=== PATIENT | male | born 1950 | race Caucasian/White ===

== ENCOUNTER → 2017-01-01 | Day surgery (SDC) | payer MEDICARE ==
[~2017-01-01] MED LIST: ASPIRIN ENTERI325 M1 PO; ASPIRIN PO; ATARAX PO; ATIVAN PO; BAYER ASPIRIN325 M1 PO; CELEBREX PO; COUMADIN PO; COUMADIN2.5 MG PO; COUMADIN5 MG PO; COUMADIN7.5 MG PO; EPIPEN0.3 MG/0.1 IM; FAMOTIDINE PO; LISINOPRIL PO; LISINOPRIL10 MG PO; LISINOPRIL20 MG PO; MEDROL PO; METHADONE HCL10 MG PO; METHADONE PO; METHADOSE40 M1 PO; NEURONTIN; PAXIL10 MG PO; PERCOCET PO; PREDNISONE PO; PREDNISONE10 MG PO; PRINIVIL20 M1 PO; SOMA PO; SOMA250 MG PO; UNKNOWN BP MED
--- NOTE | ~2017-01-01 | OR ---
Unit #: [id number] #: [id number] Patient: SCOOBY CHAPIN [id number] [address] [id number] O MR#: [id number] NAME: SCOOBY CHAPIN. ROOM: Date of Procedure: 01/01/2017 Admission Date: 01/01/2017 Surgeon: Nav Higginbotham M.D. : 1950 Attending Physician: Nav Higginbotham M.D. Primary Care Physician: Ava Bahena M.D. OPERATIVE REPORT PROCEDURE PERFORMED Colonoscopy with snare polypectomy. INDICATIONS FOR PROCEDURE The patient with personal history of colon cancer, status post left hemicolectomy. MEDICATIONS Monitored anesthesia. POSTOPERATIVE FINDINGS 1. Polyp, 5 mm, cecum, snared and sent for histopathology. 2. Polyps x3, 6 to 8 mm, transverse colon, snared and sent for histopathology. 3. Anastomosis was intact. 4. Prep was very poor despite extensive lavaging. PLAN Given the poor prep and multiple polyps and personal history of colon cancer, recommend repeat colonoscopy in 1 year. DESCRIPTION OF PROCEDURE The patient was explained of the procedure, risks, and benefits along with risks and benefits of anesthesia. He was brought to the endoscopy room. Propofol anesthesia was given. Rectal exam was done, which was normal. Colonoscope was lubricated, passed up the rectum, advanced under direct vision all the way to the cecum. Cecum was identified by ileocecal valve and appendiceal orifice. Polyp seen in cecum was snared and sent for histopathology. Three polyps seen in transverse colon were snared and sent for histopathology. Extensive lavaging was done. I retroflexed in the rectum, small hemorrhoids seen. Scope was gently pulled out. He tolerated it well. Dictated by... Shalini Dominguez/violet TD: 01/01/2017 21:59 JOB #: [id number] Unit #: [id number] #: [id number] Patient: SCOOBY CHAPIN OPERATIVE REPORT X Nav Higginbotham MD PROCEDURE OPERATIVE NOTE
== END | disposition home or self-care (01) ==
LOC: COPS 08:12
DX: Z12.11 Encounter for screening for malignant neoplasm of colon (principal); D12.0 Benign neoplasm of cecum; D12.3 Benign neoplasm of transverse colon; K64.9 Unspecified hemorrhoids; I10 Essential (primary) hypertension; I25.119 Atherosclerotic heart disease of native coronary artery with unspecified angina pectoris; J44.9 Chronic obstructive pulmonary disease, unspecified; Z85.038 Personal history of other malignant neoplasm of large intestine; Z79.82 Long term (current) use of aspirin; Z79.899 Other long term (current) drug therapy; Z90.49 Acquired absence of other specified parts of digestive tract; Z95.5 Presence of coronary angioplasty implant and graft; Z96.643 Presence of artificial hip joint, bilateral; Z98.890 Other specified postprocedural states
CPT/HCPCS: 88305

== ENCOUNTER 2017-07-13 01:58 | Emergency (ER) | payer MEDICARE ==
--- NOTE | ~2017-07-13 | CT16 ---
[facility] A Service of [facility] RADIOLOGY TEXT RESULTS PATIENT: SCOOBY CHAPIN LOCATION: [facility] : 46 UNIT #: [id number] AGE: [address]: Efren Pinzon MD SEX: M ORDER DR: [id number] [facility] [address] [place], [place] [address] [id number] E MR#: [id number] Acc #: [id number] NAME: SCOOBY CHAPIN : 1950 SEX: M STUDY DATE/TIME: 07/13/2017 8:43 UNIT: [facility] ROOM: STUDY DESCRIPTION: CT Angio Chest for PE Attending Physician: Efren Pinzon M.D. Ordering Physician: Efren Pinzon M.D. Primary Care Physician: Ava Bahena M.D. MEDICAL IMAGING REPORT This report is preliminary unless electronic signature is present EXAM CT chest with pulmonary embolus protocol. INDICATIONS Severe left lower leg pain for 4 days, elevated D-dimer. COMPARISON Venous ultrasound 07/13/2017. TECHNIQUE Patient was given 80 mL of Isovue-370, and spiral imaging was performed through the chest. 3D reconstructions of the pulmonary arteries were generated. This CT exam was performed with one or more of the following radiation dose reduction techniques: automatic exposure control, adjustment of mA and/or kV according to patient size, and iterative reconstruction. FINDINGS There is adequate opacification of the pulmonary arteries and there is no CT evidence of pulmonary embolus. Aorta is normal in size and there is no dissection. The visualized thyroid gland is normal. Images through the upper abdomen show splenomegaly with a splenic size of 16.7 cm. Morphologic change in the liver, suggest cirrhosis with a slightly enlarged caudate lobe and left lobe. Bones are unremarkable. The lungs are clear except for minimal right base atelectasis. IMPRESSION 1. No active disease. No evidence of pulmonary embolus or aortic dissection. 2. Splenomegaly with subtle morphologic change in the liver suggesting cirrhosis. [facility] A Service of [facility] RADIOLOGY TEXT RESULTS PATIENT: SCOOBY CHAPIN LOCATION: [facility] : 46 UNIT #: [id number] AGE: [address]: Efren Pinzon MD SEX: M ORDER DR: Dictated by... Rudy Cuello M.D. THIS IS AN ELECTRONICALLY VERIFIED REPORT Rudy Cuello M.D. at 07/13/2017 4:33 PM BRICE/daron TD: 07/13/2017 16:10 JOB #: [id number] MEDICAL IMAGING REPORT Page 1 of 1 COPY
--- NOTE | ~2017-07-13 | CR72 ---
[facility] A Service of [facility] & [facility] RADIOLOGY TEXT RESULTS PATIENT: SCOOBY CHAPIN LOCATION: [facility] : 48 UNIT #: [id number] AGE: [address]: Efren Pinzon MD SEX: M ORDER DR: [id number] [facility] [address] [place], [place] [address] [id number] E MR#: [id number] Acc #: [id number] NAME: SCOOBY CHAPIN : 1950 SEX: M STUDY DATE/TIME: 07/13/2017 UNIT: [facility] ROOM: STUDY DESCRIPTION: CR Chest Single View Portable Attending Physician: Efren Pinzon M.D. Ordering Physician: Michi Chicas Aprn MEDICAL IMAGING REPORT This report is preliminary unless electronic signature is present EXAM Portable chest 07/13 at 05:01 INDICATIONS Shortness of air for 1 day with leg pain. History of colon and bladder cancer and coronary artery disease. TECHNIQUE AP portable chest is compared with 07/01/2015. FINDINGS Lung volumes are relatively low but the lungs remain clear. There is cardiomegaly. No pneumothorax. Eventration of the right hemidiaphragm is stable. IMPRESSION Chronically low lung volumes. Stable mild cardiomegaly. No acute findings in the chest. Dictated by... Kennedy Francis Jr., M.D. THIS IS AN ELECTRONICALLY VERIFIED REPORT Kennedy Francis Jr., M.D. at 07/13/2017 9:21 PM RLK/pcl TD: 07/13/2017 15:53 JOB #: [id number] MEDICAL IMAGING REPORT Page 1 of 1 COPY
--- NOTE | ~2017-07-13 | EKG ---
PATIENT: SCOOBY CHAPIN UNIT #: [id number] Ventricular Rate: 65 BPM Atrial Rate: 65 BPM P-R Interval: 190 ms QRS Duration: 92 ms Q-T Interval: 448 ms QTC Calculation(Bezet): 465 ms P Ripon: 30 degrees Calculated R Ripon: -2 degrees Calculated T Ripon: 18 degrees Diagnosis Line: Normal sinus rhythm Diagnosis Line: Normal ECG Diagnosis Line: When compared with ECG of 01-JUL-2015 12:45, Diagnosis Line: No significant change was found Diagnosis Line: Confirmed by SHAYNE MAR MD ([id number]) on Diagnosis Line: 07/13/2017 2:11:26 PM INTERPRETING MD: ISABELA TURK
--- NOTE | ~2017-07-13 | US85 ---
[facility] A Service of [facility] & [facility] RADIOLOGY TEXT RESULTS PATIENT: SCOOBY CHAPIN LOCATION: [facility] : 48 UNIT #: [id number] AGE: [address]: Efren Pinzon MD SEX: M ORDER DR: [id number] [facility] [address] [place], [place] [address] [id number] E MR#: [id number] Acc #: [id number] NAME: SCOOBY CHAPIN : 1950 SEX: M STUDY DATE/TIME: 07/13/2017 9:02 UNIT: [facility] ROOM: STUDY DESCRIPTION: LE twidox Unilat or Ltd Stdy Attending Physician: Efren Pinzon M.D. Ordering Physician: Michi Chicas Aprn Primary Care Physician: Ava Bahena MEDICAL IMAGING REPORT This report is preliminary unless electronic signature is present EXAM Left lower extremity Doppler venous ultrasound, 07/13/2017 HISTORY Left lower extremity pain and swelling with shortness of breath for 4 days. Currently on blood thinners. TECHNIQUE Venous ultrasound examination of the left lower extremity was performed using grayscale, spectral Doppler and color flow Doppler imaging. FINDINGS The examination is negative. There is no evidence of left lower extremity deep venous thrombus from the groin to the lower calf. Visualized greater saphenous vein is also patent. IMPRESSION Negative examination. No evidence of left lower extremity deep venous thrombosis. Dictated by... Iveth Starr M.D. THIS IS AN ELECTRONICALLY VERIFIED REPORT Iveth Starr M.D. at 07/13/2017 5:03 PM Oj TD: 07/13/2017 16:10 JOB #: [id number] MEDICAL IMAGING REPORT Page 1 of 1 COPY
[2017-07-13 06:25] LABS: POC - CKMB 3.8 ng/mL (0.0-7.9); POC - TROPONIN <0.05 ng/mL (<=0.05)
[2017-07-13 06:54] LABS: BASOPHIL% 0.4 % (0-2.5); EOSINOPHIL# 0.1 X10e3 (0-0.7); EOSINOPHIL% 3.3 % (0.0-7.0); HEMATOCRIT 35.7 % (38.0-50.0); HEMOGLOBIN 12.1 gm/dL (13.0-16.0); LYMPHOCYTE# 1.2 X10e3 (1.0-3.5); LYMPHOCYTE% 26.4 % (17.0-45.0); MEAN CELL VOLUME 102.5 FL (83-96); MEAN CORPUSCULAR HEMOGLOBIN 34.6 PG (28-34); MEAN CORPUSCULAR HGB CONC 33.7 g/dL (30-36); MEAN PLATELET VOLUME 8.5 FL (6.5-11.5); MONOCYTE# 0.5 X10e3 (0-1.0); MONOCYTE% 10.2 % (3.0-12.0); NEUTROPHIL# 2.7 X10e3 (1.5-7.1); NEUTROPHIL% 59.7 % (40-75); RED BLOOD COUNT 3.49 X10e (3.90-5.60); RED CELL DISTRIBUTION WIDTH 14.5 % (11.0-15.5); WHITE BLOOD COUNT 4.5 X10e3 (4.0-10.5)
[2017-07-13 07:16] LABS: ALBUMIN SERUM 3.2 g/dL (3.5-5.0); BILIRUBIN, DIRECT 0.3 mg/dL (0.0-0.2); BILIRUBIN,INDIRECT 0.8 mg/dL (0.0-0.9); BILIRUBIN,TOTAL 1.1 mg/dL (0.2-2.0); CALCIUM SERUM 8.4 mg/dL (8.4-10.2); CREATININE SERUM 0.8 mg/dL (0.6-1.4); GLOM FILT RATE Estimated 91.8 mL/min (>60); POTASSIUM 3.7 mmol/L (3.5-5.1); PROTEIN TOTAL SERUM 6.5 g/dL (6.0-8.3)
[2017-07-13 07:40] LABS: DIFF IND YES; PLATELET COUNT 59 X10e3 (140-420)
[2017-07-13 07:43] LABS: PLATELET ESTIMATE DECREASED (NORMAL)
[2017-07-13 07:54] LABS: INR 2.1; PARTIAL THROMBOPLASTIN TIME 32.8 SECONDS (23.5-31.3); PROTHROMBIN TIME (PATIENT) 22.5 SECONDS (10.0-11.7)
[2017-07-13 08:27] LABS: POC - CKMB 4.6 ng/mL (0.0-7.9); POC - TROPONIN <0.05 ng/mL (<=0.05)
== END 2017-07-13 10:56 | disposition home or self-care (01) ==
LOC: CED 01:58
PROVIDERS: Emergency Medicine; Nurse Practitioner Family
DX: M79.605 Pain in left leg (principal); K21.9 Gastro-esophageal reflux disease without esophagitis; I10 Essential (primary) hypertension; F41.9 Anxiety disorder, unspecified; Z90.49 Acquired absence of other specified parts of digestive tract
CPT/HCPCS: 36415; 71010; 71275; 80048; 80076; 82553; 84484; 85025; 85379; 85610; 85730; 93005; 93971; 99285; Q9967